=== PATIENT | male | born 1990 | race Two or more races ===

== ENCOUNTER 2019-07-01 19:58 | Emergency (ER) | payer BC ==
--- NOTE | 2019-07-01 23:16 | EDM.PDOC ---
ED HPI GENERAL MEDICAL PROBLEM - General Chief Complaint: Cardiovascular Problem Stated Complaint: IRREGULAR HEARTBEAT Time Seen by Provider: 07/01/19 22:59 Source of Information: Reports: Patient History Limitations: Reports: No Limitations - History of Present Illness INITIAL COMMENTS - FREE TEXT/NARRATIVE: pt arrived because he had a health fair check up at [facility] and he had triglycerides greater than 600. . He did not understand the management of this is over a period of time. He has had a cough and a low grade temp. He is not having chest discomfort at this point. He doers give a history of vaping on a regular basis. Onset: Gradual Duration: Day(s): Location: Reports: Chest, Other ( concern over the elevated triglycerides. ) Associated Symptoms: Reports: Chest Pain, Cough, Other ( heart has seemed irregular. ) Chest Pain Score (Numeric/FACES): 4 - Related Data Allergies Allergy/AdvReac Type Severity Reaction Status Date / Time No Known Allergies Allergy Verified 07/01/19 22:50 Home Meds: Home Meds Calcium Carbonate [Tums Ultra] 2 tab PO BID 07/01/19 [History] Past Medical History - Past Health History Medical/Surgical History: Denies Medical/Surgical History Social & Family History - Tobacco Use Smoking Status *Q: Light Tobacco Smoker Years of Tobacco use: 19 Packs/Tins Daily: 0.5 - Caffeine Use Caffeine Use: Reports: Energy Drinks Other Caffeine Use: 1 energy drink per day (3-4 days per week). - Recreational Drug Use Recreational Drug Use: No ED ROS GENERAL - Review of Systems Review Of Systems: See Below Constitutional: Reports: No Symptoms HEENT: Reports: No Symptoms Respiratory: Reports: Cough Cardiovascular: Reports: No Symptoms Endocrine: Reports: No Symptoms GI/Abdominal: Reports: No Symptoms : Reports: No Symptoms Musculoskeletal: Reports: No Symptoms Skin: Reports: No Symptoms Neurological: Reports: No Symptoms ED EXAM, GENERAL - Physical Exam Exam: See Below Free Text/Narrative:: pt was very concerned about the elevated triglycerides that were noted. Exam Limited By: No Limitations General Appearance: Alert, Anxious, Mild Distress, Other ( Pt has been coughing alot. ) Ears: Normal TMs Nose: Normal Inspection Throat/Mouth: Normal Inspection Head: Atraumatic Neck: Normal Inspection Respiratory/Chest: Other (pt has had a coiugh and has a fever. ) Cardiovascular: Regular Rate, Rhythm GI/Abdominal: Soft, Non-Tender (Male) Exam: Deferred Rectal (Males) Exam: Deferred Back Exam: Normal Inspection Extremities: Normal Inspection Course - Vital Signs Last Recorded V/S: Last Vital Signs Temp 37.7 C 07/01/19 22:44 Pulse 71 07/01/19 23:55 Resp 14 07/01/19 23:55 BP 111/51 L 07/01/19 23:55 Pulse Ox 99 07/01/19 23:55 - Orders/Labs/Meds Orders: Active Orders 24 hr Category Date Time Status Cardiac Monitoring [RC] .As Directed Care 07/01/19 22:59 Active EKG Documentation Completion [RC] ASDIRECTED Care 07/01/19 23:00 Active EKG 12 Lead [EK] Routine Ther 07/01/19 23:00 Ordered Labs: Laboratory Tests 07/01/19 07/01/19 07/02/19 Range/Units 23:15 23:15 00:29 WBC 5.6 (4.5-11.0) K/uL RBC 5.42 (4.30-5.90) M/uL Hgb 14.4 (12.0-15.0) g/dL Hct 44.6 (40.0-54.0) % MCV 82 (80-98) fL MCH 27 (27-31) pg MCHC 32 (32-36) % Plt Count 244 (150-400) K/uL Neut % (Auto) 33 L (36-66) % Lymph % (Auto) 50 H (24-44) % [place] % (Auto) 12 H (2-6) % Eos % (Auto) 5 H (2-4) % Baso % (Auto) 1 (0-1) % Sodium 140 (140-148) mmol/L Potassium 4.0 (3.6-5.2) mmol/L Chloride 104 (100-108) mmol/L Carbon Dioxide 27 (21-32) mmol/L Anion Gap 8.9 (5.0-14.0) mmol/L BUN 18 (7-18) mg/dL Creatinine 1.1 (0.8-1.3) mg/dL Est Cr Clr Drug Dosing 94.14 mL/min Estimated GFR (MDRD) > 60 (>60) Glucose 124 H (74-106) mg/dL Calcium 8.5 (8.5-10.1) mg/dL Total Bilirubin 0.3 (0.2-1.0) mg/dL AST 27 (15-37) U/L ALT 37 (12-78) U/L Alkaline Phosphatase 103 (46-116) U/L Troponin I < 0.017 (0.000-0.056) ng/mL Total Protein 7.1 (6.4-8.2) g/dL Albumin 3.6 (3.4-5.0) g/dL Globulin 3.5 (2.3-3.5) g/dL Albumin/Globulin Ratio 1.0 L (1.2-2.2) - Re-Assessments/Exams Free Text/Narrative Re-Assessment/Exam: 07/02/19 00:19 wbc is not elevated there is alot of lymphocytes. 07/02/19 00:20 chems look good. chest xray shows no sign of infiltrates. His trop was neg. 07/02/19 01:02 Departure - Departure Time of Disposition: 01:03 Disposition: Home, Self-Care 01 Condition: Fair Clinical Impression: Chest congestion, Viral illness, Elevated cholesterol with elevated triglycerides Referrals: PCP,None [Primary Care Provider] - Forms: ED Department Discharge Care Plan Goals: cool mist humidifier, stop vaping, continue the muconex, push fluids, appt with Dr Lafleur in the next week regarding the high triglyceries. copy of lab work, ekg and chest xray report to go with him. - My Orders Last 24 Hours: My Active Orders 07/01/19 22:59 Cardiac Monitoring [RC] .As Directed 07/01/19 23:00 EKG Documentation Completion [RC] ASDIRECTED EKG 12 Lead [EK] Routine - Assessment/Plan Last 24 Hours: My Active Orders 07/01/19 22:59 Cardiac Monitoring [RC] .As Directed 07/01/19 23:00 EKG Documentation Completion [RC] ASDIRECTED EKG 12 Lead [EK] Routine
--- NOTE | 2019-07-02 00:34 | CRLCR ---
INDICATION: COUGH LOW GRADE TEMP CHEST, PA AND LATERAL Upright PA and lateral radiographs of the chest were performed. Comparison: No previous studies are currently available for comparison. The lungs appear clear and there are no pleural effusions. Heart size and pulmonary vasculature appear normal. Visualized bones show no significant findings. IMPRESSION: No acute intrathoracic abnormality identified. RADHA GALO MD [facility] Dictated by: Isacc Galo MD @ 07/02/2019 00:33:04 (Electronically Signed)
== END 2019-07-02 01:44 | disposition home or self-care (01) ==
LOC: JP.ED 19:58
DX: B34.9 Viral infection, unspecified (principal); E78.5 Hyperlipidemia, unspecified; E78.1 Pure hyperglyceridemia; F17.210 Nicotine dependence, cigarettes, uncomplicated; Z79.899 Other long term (current) drug therapy
CPT/HCPCS: 36415; 71046; 80053; 84484; 85025; 93005; 99285-25

== ENCOUNTER 2021-05-18 12:34 | Observation (INO) | payer BC ==
[2021-05-18] MEDS ORDERED: Naloxone 0.4 MG/ML SDV IV PRN (13:00)
[2021-05-18] MEDS ORDERED: Ondansetron 4 MG/2 ML SDV IVPUSH PRN (13:02)
[2021-05-18] MEDS: HYDROmorphone/Normal Saline 15 MG/30 ML PCA IV PRN (13:40)
[2021-05-18] MEDS: Meropenem 500 MG in Sodium Chloride 0.9% 50 ML IV SCH ×2 (14:39→21:59)
[2021-05-18] MEDS: Acetaminophen 500 MG Tab PO SCH ×2 (14:42→19:52)
[2021-05-18] MEDS ORDERED: Potassium Phosphates 3 mMole/ML 15 ML SDV IV ONE (17:00)
[2021-05-18] MEDS ORDERED: Potassium Phosphates 25 MMOLE in Sodium Chloride 0.9% 250 ML IV ONE (17:00)
[2021-05-18] MEDS ORDERED: Potassium Phosphates 20 MMOLE in Sodium Chloride 0.9% 250 ML IV ONE (21:00)
[2021-05-19] MEDS: Acetaminophen 500 MG Tab PO SCH ×4 (01:42→19:49)
[2021-05-19] MEDS: Meropenem 500 MG in Sodium Chloride 0.9% 50 ML IV SCH ×4 (01:42→19:49)
[2021-05-19] MEDS: Dextrose 5%-Lactated Ringers 1,000 ML IV SCH ×3 (02:30→13:46)
[2021-05-19] MEDS ORDERED: Lidocaine 1% with EPINEPHrine 1:100,000 50 ML MDV ONE (06:34)
[2021-05-19] MEDS ORDERED: Bupivacaine 0.5% 50 ML MDV ONE (06:34)
[2021-05-19] MEDS ORDERED: Glycopyrrolate 0.2 MG/ML 5 ML MDV ONE (07:08)
[2021-05-19] MEDS ORDERED: Neostigmine Methylsulfate 1 MG/ML 5 ML Syringe ONE (07:08)
[2021-05-19] MEDS ORDERED: Succinylcholine 200 MG/10 ML MDV ONE (07:08)
[2021-05-19] MEDS ORDERED: Propofol 200 MG/20 ML SDV ONE (07:08)
[2021-05-19] MEDS ORDERED: Rocuronium 50 MG/5 ML Vial ONE (07:08)
[2021-05-19] MEDS ORDERED: Dexamethasone 4 MG/ML SDV ONE (07:08)
[2021-05-19] MEDS ORDERED: Ondansetron 4 MG/2 ML SDV ONE (07:08)
[2021-05-19] MEDS ORDERED: fentaNYL 250 MCG/5 ML SDV ONE (07:11)
[2021-05-19] MEDS ORDERED: Meropenem 500 MG SDV ONE (08:25)
[2021-05-19] MEDS: HYDROmorphone/Normal Saline 15 MG/30 ML PCA IV PRN (21:34)
[2021-05-20] MEDS: Dextrose 5%-Lactated Ringers 1,000 ML IV SCH (00:08)
[2021-05-20] MEDS: Meropenem 500 MG in Sodium Chloride 0.9% 50 ML IV SCH ×2 (01:46→07:52)
[2021-05-20] MEDS: Acetaminophen 500 MG Tab PO SCH ×2 (01:46→07:51)
[2021-05-20] MEDS ORDERED: HYDROmorphone 2 MG Tab PO PRN (07:02)
[2021-05-20] MEDS ORDERED: Sulfamethoxazole/Trimethoprim 800-160 MG Tab PO SCH (09:00)
--- NOTE | 2021-05-21 14:15 | DISCH ---
FINAL DIAGNOSIS: Left-sided scrotal abscess. SECONDARY DIAGNOSES: 1. Recent gastrointestinal viral illness. 2. Hyperlipidemia. OPERATIVE PROCEDURE: Drainage of left-sided scrotal abscess, that was done on 05/19. SUMMARY: This is a 31-year-old male presenting with an abscess involving the superficial aspects of the scrotum. This was debrided. This was essentially a necrotizing infection, which was drained and debrided and at this point, the infection appeared to be well controlled. Cultures grew out Gram positive cocci. He will be discharged home at this point with dressing changes and Septra DS one tablet b.i.d. x7 days. He will also be sent home with Dilaudid 2 mg q.6 hours p.r.n. pain #12 and instructed to take Tylenol and ibuprofen as needed. Dressing change instructions were given. We will see the patient back in followup on 05/24/2021. /[id number]
--- NOTE | 2021-05-29 13:53 | OR ---
DATE OF PROCEDURE: 05/19/2021 SURGEON: Hector Cho MD PREOPERATIVE DIAGNOSIS: Probable left scrotal abscess. POSTOPERATIVE DIAGNOSIS: Left scrotal abscess associated with necrotizing infection of the scrotum. OPERATIVE PROCEDURES: Exploration of infected area of left scrotum with: 1. Debridement of necrotizing infection involving left scrotum (43885). 2. Incision and drainage of abscess contained within the area of necrotizing infection (29271). ANESTHESIA: General. INDICATIONS FOR PROCEDURE: This is a 31-year-old presenting yesterday with what appeared to be an abscess involving the left scrotum. Ultrasound in that area showed complex fluid collection. The plan is to proceed with incision and drainage of that and debridement as necessary. Potential risks including bleeding, infection, possible involvement of the testicle or cord structures were then made impaired, subsequent fertility were all gone over, and the patient wishes to proceed. DETAILS OF PROCEDURE: The patient was taken to the operating room and after general endotracheal anesthesia was induced, initially a linear incision over the area of involvement was made. As one went down through the skin and scrotal musculature, a large amount of creamy purulent material was evacuated and sent for culture. An elliptical incision was then made anteriorly which did lead as some area of focal necrotic tissue on the skin aspect of that. The remaining areas away from that appeared to be at this point viable so as to not involve in further necrosis per se. After all of this necrotic material was then debrided, the wound was then anesthetized with 0.5% Marcaine with epinephrine and the wound packed, and the patient was taken to the recovery room in satisfactory condition. The plan will be to re-inspect the wound tomorrow morning at the bedside. If there, at that point, appears to be some further spreading of the necrotizing infection, we will need to bring him back to the operating room. Otherwise, without that, simply continue with dressing changes and ongoing antibiotic administration. Hector Cho MD /[id number]
== END 2021-05-20 09:54 | disposition home or self-care (01) ==
LOC: INTOOBSV 12:34 → JP.ICU 12:34
PROVIDERS: ADMIT Surgery; ATTEND Surgery
DX: N49.2 Inflammatory disorders of scrotum (principal); E78.5 Hyperlipidemia, unspecified; A08.4 Viral intestinal infection, unspecified; B96.89 Other specified bacterial agents as the cause of diseases classified elsewhere; F17.210 Nicotine dependence, cigarettes, uncomplicated
CPT/HCPCS: 11004; 36415; 55100; 80053; 83735; 84100; 85027; 87070; 87075; 87077; 87205; 94762; A9270; G0378; J0330; J1100; J1170; J2185; J2405; J2704; J2710; J3010; J3490; J7050; J7121